=== PATIENT | female | born 1935 | race Caucasian/White ===

== ENCOUNTER 2017-10-31 15:36 | Observation (INO) | payer MEDICARE, OTHER ==
[~2017-10-31 15:36] MED LIST: ISOVUE-370 76%-LOCM 1 ML ONE
--- NOTE | 2017-10-31 16:40 | CT ---
HEAD CT WITHOUT CONTRAST: 10/31/17 COMPARISON: None. HISTORY: Memory loss for one hour, right hand numbness with hypertension. TECHNIQUE: Serial axial CT imaging at 5 mm intervals from vertex through skull base without contrast. FINDINGS: Imaged paranasal sinuses/mastoid air cells are well aerated. There is no displaced calvarial fracture . There is atherosclerotic calcification of the cavernous carotid arteries. No intracranial hemorrhage, midline shift, or mass effect. Periventricular hypodensities suggest smal l vessel disease. IMPRESSION: No intracranial hemorrhage. Results called to Dr. Ross, 3:50 p.m., 10/31/17. Code CR POS: TYREE
[2017-10-31 16:47] LABS: #Basophils 0.1 thou/uL (0.0-0.2); #Eosinphils 0.1 thou/uL (0.0-0.7); #Lymphocytes 3.1 thou/uL (1.20-3.40); #Monocytes 0.7 thou/uL (0.11-0.59); #Neutrophils 3.4 thou/uL (1.40-6.50); %Basophils 1.7 % (0.0-1.0); %Eosinophils 1.4 % (0.0-10.0); %Lymphocytes 42.2 % (21.0-51.0); %Monocytes 8.8 % (0.0-10.0); %Neutrophils 45.9 % (42.0-75.0); Mean Corpuscular HGB CONC 33.1 g/dL (32.0-36.0); Mean Corpuscular Hemoglobin 31.1 pg (27.0-31.0); Mean Corpuscular Volume 93.8 fl (81.0-99.0); Mean Platelet Volume 6.5 fL (7.4-10.4); Platelet Count 337 thou/uL (130-400); RBC Distribution Width 11.5 % (11.5-14.5); Red Blood Cell (RBC) Count 4.19 mill/uL (4.20-5.40); White Blood Cell (WBC) Count 7.4 thou/uL (4.8-10.8)
[2017-10-31 16:59] LABS: CKMB 0.9 ng/mL (0-6.6); Troponin I Less than 0.010 ng/mL (< 0.028)
--- NOTE | 2017-10-31 17:00 | CT ---
CT ANGIOGRAM OF THE HEAD CT ANGIOGRAM OF THE NECK CT PERFUSION 10/31/17 HISTORY: Stroke protocol. One hour ago, memory loss and right hand numbness. Symptoms have resolved. COMPARISON: None. TECHNIQUE: CT angiogram of the head and neck performed in the axial plane. Sagittal and coronal three dimensiona l reformatted images are submitted for interpretation. CT perfusion being performed in the axial plan e. FINDINGS: There is preservation of the cortical murcia-white matter differentiation. Chronic small vessel ischemi c change of the white matter are noted. Adequate aeration of the sinuses and mastoid air cells. Calvarium is intact. Symmetric attenuation of the optic nerves and ocular rectus muscles. Aerodigestive tract is patent. No obvious mucosal abnorm ality. Limited evaluation due to dental amalgam artifact. Grossly, the fatty raphae of the tongue susie ears to be preserved. There is nonspecific fullness involving both palatine tonsils. Epiglottis has a normal caliber. Pre-epiglottic fat is preserved. Symmetric attenuation of the parotid and submandibu lar glands. Thyroid gland is unremarkable. Symmetric attenuation of the sternocleidomastoid muscles. No evidence of lymphadenopathy by size criteria. Varying degrees of central canal stenosis and foraminal narrowing on the basis of degenerative change . Upper mediastinum and lung apices are grossly unremarkable for an acute abnormality. There is nonspec ific opacity in the left upper lobe, with a slight ground glass appearance measuring 4 mm. There is n onspecific opacity in the in the right upper lobe with a slight irregular marginated appearance measu ring [address] ANGIOGRAM: There is appropriate enhancement and luminal diameter of the visualized arch. RIGHT CAROTID: The right carotid artery origin has appropriate enhancement and luminal diameter. The right common ca rotid artery, carotid bifurcation, and internal carotid artery have appropriate enhancement and lumin al diameter. There is evidence of mild atherosclerotic disease involving the right carotid bifurcatio n and proximal internal carotid artery. No significant stenosis based upon NASCET criteria. LEFT CAROTID: The left carotid artery origin has appropriate enhancement and luminal diameter. The left common huitron tid artery, carotid bifurcation, and internal carotid artery have appropriate enhancement and luminal diameter. There is no evidence of significant stenosis. Both vertebral artery origins are unremarkable. Both vertebral arteries are patent throughout their c ourse of the neck. No significant stenosis. Bilateral subclavian arteries are unremarkable. CT ANGIOGRAM OF THE HEAD: There is symmetric enhancement and luminal diameter of the distal cervical and intracranial internal carotid arteries. ANTERIOR CIRCULATION: Symmetric enhancement and luminal diameter of the M1 segments. Congenitally diminutive left A1 segmen t. Proximal A2 segments and proximal MCA branches are unremarkable. POSTERIOR CIRCULATION: Posterior circulation does not demonstrate any significant stenosis. Basilar artery and the left PI s egment are unremarkable. The right [employer] IN[employer] LEADER has a origin. CT PERFUSION: No evidence of decreased blood flow or blood volume. No evidence of increased mean transit time. No e vidence of complete infarct or penumbra. IMPRESSION: 1. Unremarkable CT angiogram of the head and neck. 2. Unremarkable CT perfusion. Results of the study discussed with Dr. Ross, 10/31/17 at 4:06 p.m. Code CR POS: MANNY
[2017-10-31 17:02] LABS: Anion Gap 12 mmol/L (10-20); BUN (Urea Nitrogen) 25 mg/dL (9.8-20.1); Calc. Creatinine Clearance 0 mL/min (70-130); Carbon Dioxide 25 mmol/L (23-31); Chloride 99 mmol/L (98-107); Estimated GFR-MDRD 68; Potassium 3.8 mmol/L (3.5-5.1); Sodium 132 mmol/L (136-145)
[2017-10-31 17:03] LABS: ALT (SGPT) 13 U/L (8-55); AST (SGOT) 19 U/L (5-34); Albumin 3.7 g/dL (3.4-4.8); Alkaline Phosphatase 72 U/L (40-150); Bilirubin, Total 0.3 mg/dL (0.2-1.2); Calcium 8.5 mg/dL (7.8-10.44); Globulin 3.4 g/dL (2.4-3.5); Glucose 101 mg/dL (83-110); Protein, Total 7.1 g/dL (6.0-8.3)
--- NOTE | 2017-10-31 18:05 | RAD ---
SINGLE VIEW OF THE CHEST: COMPARISON: None. HISTORY: CVA/TIA. FINDINGS: Single view of the chest shows a normal sized cardiomediastinal silhouette. There is no evidence of c onsolidation, mass, or pleural effusion. The bones are unremarkable. IMPRESSION: No evidence of acute cardiopulmonary disease. POS: [facility]
[2017-10-31] MEDS ORDERED: Guaifenesin DM 100-10/5 ML UDCUP PO PRN (18:58)
[2017-10-31] MEDS ORDERED: Senokot 8.6 MG TAB PO PRN (18:58)
[2017-10-31] MEDS ORDERED: Acetaminophen 325 MG TAB PO PRN (18:58)
[2017-10-31] MEDS ORDERED: Sodium Chloride 0.9% 1,000 ML IV SCH (19:00)
[2017-10-31 20:13] LABS: Troponin I Less than 0.010 ng/mL (< 0.028)
[2017-10-31] MEDS ORDERED: Ondansetron HCl/PF 4 MG/2 ML Vial IVP PRN (20:40)
[2017-10-31] MEDS ORDERED: Ondansetron ODT 4 MG TAB SL PRN (20:40)
[2017-10-31] MEDS ORDERED: Atorvastatin Calcium 10 MG TAB PO SCH (21:00)
[2017-10-31 21:45] VITALS: BMI 27.8
--- NOTE | 2017-10-31 22:03 | HP ---
REASON FOR ADMISSION: Possible transient ischemic attack. HISTORY OF PRESENTING ILLNESS: The patient gives history of driving home around 2:30 p.m. She saw the cars in front of her and had some blurry vision. She could not really read the license plate of the car in front of her. The patient reached home walked 3 flights of stairs to a third floor home. She sat on her couch and was trying to watch TV. She could not read the caption. The patient then tried to get on her computer to log in and used her password 2 times and they were wrong and could not get in. All of this was feeling not right for her. She lives in [facility]. She has a friend of hers who is a retired nurse who came and checked her blood pressure. It was 100/60, which patient says is normal for her. She also felt her right hand to be numb and the nurse gave her aspirin. She felt better after this. She drove to ER with a friend to find out if she had a stroke or something did not seem right. No complaints of chest pain, palpitation, PND or orthopnea. The patient states she was a little anxious during this entire episode and does not recall if she had any palpitations. No complaints of cough or expectoration. No urinary symptoms. PAST MEDICAL/SURGICAL HISTORY: Prior history of fundoplication with severe GERD , has had stress test done 10 years back which was normal as far she knows. Prior endoscopies, hysterectomy, left breast biopsy. CURRENT MEDICATIONS: Takes aspirin on a p.r.n. basis, multivitamin 1 tab daily , Nexium 40 mg daily. ALLERGIES: No known drug allergies. PERSONAL HISTORY: Does not abuse alcohol or drugs. No history of smoking. Lives with her [facility]. FAMILY HISTORY: Mother at the age of 87 years. She has had history of dementia. Father at the age of 60 from myocardial infarction. He was a smoker. REVIEW OF SYSTEMS: The following complete review of systems was negative, unless otherwise mentioned in the HPI or below: Constitutional: Weight loss or gain, ability to conduct usual activities. Skin: Rash, itching. Eyes: Double vision, pain. ENT/Mouth: Nose bleeding, neck stiffness, pain, tenderness. Cardiovascular: Palpitations, dyspnea on exertion, orthopnea. Respiratory: Shortness of breath, wheezing, cough, hemoptysis, fever or night sweats. Gastrointestinal: Poor appetite, abdominal pain, heartburn, nausea, vomiting, constipation, or diarrhea. Genitourinary: Urgency, frequency, dysuria, nocturia. Musculoskeletal: Pain, swelling. Neurologic/Psychiatric: Anxiety, depression. Allergy/Immunologic: Skin rash, bleeding tendency. PHYSICAL EXAMINATION: GENERAL: The patient is an 81-year-old female who is currently not in any acute distress. VITAL SIGNS: Blood pressure 126/60, pulse 84 per minute, respiratory rate 16 per minute, temperature 98.4 degrees Fahrenheit, saturating 97% on room air. NECK: Supple, no elevated JVD. HEENT: Eyes, extraocular muscles intact. Pupils reacting to light. Oral cavity mucous membranes are dry. No exudates or congestion. CARDIOVASCULAR: S1, S2 heard. Regular rhythm. RESPIRATORY: Air entry 2+ bilateral. No rales or rhonchi. ABDOMEN: Soft, bowel sounds heard. No tenderness, rigidity or guarding. EXTREMITIES: No peripheral edema or calf tenderness. VASCULAR SYSTEM: Peripheral pulses 1+ bilateral, no ischemic ulcerations or gangrene. CENTRAL NERVOUS SYSTEM: No gross focal deficits seen. The patient moves all 4 extremities. Strength is 5/5 in all 4. Reflexes are 2+ bilateral. Babinski is downgoing. Cerebellar signs are grossly intact. Gait was not tested. PSYCHIATRIC: The patient's mood is euthymic. No hallucinations or delusions. LABORATORY AND X-RAY FINDINGS: CT angio brain done was unremarkable of the head and neck. CT brain showed no acute intracranial hemorrhage. Chest x-ray done showed no acute cardiopulmonary abnormalities. EKG done showed normal sinus rhythm at 82 beats per minute. BUN 25, creatinine 0.8, sodium 132, serum bicarbonate 25. Liver enzymes within normal limits. First set of cardiac enzymes are negative. Albumin is 3.7. White count of 7, H&H 13 and 39, platelet count 337, MCV is 93 with 45% neutrophils. CLINICAL IMPRESSION AND PLAN: The patient will be under observation on the stroke unit for possible TIA. She does not have any focal deficits at present. All her symptoms seemed to have resolved at present, but it is unclear the reason for all the symptoms as I have mentioned in the history of present illness. The patient most likely is mildly dehydrated. She will be placed on normal saline at 70 mL per hour. We will obtain an echo with 2D Doppler to evaluate her valves. We will continue her on aspirin 81 mg daily, and Protonix 40 mg daily. Lipid profile will be obtained in the morning. TIA evidence based protocol will be followed as well. We will continue to closely monitor her on the stroke unit. She will also be closely monitored on telemetry for any arrhythmias. Code status was discussed with patient and she is a FULL CODE. Power of tip scourer is her , who is here at bedside. AZAR
[2017-10-31 23:02] LABS: Troponin I Less than 0.010 ng/mL (< 0.028)
[2017-11-01 06:18] LABS: Anion Gap 9 mmol/L (10-20); BUN (Urea Nitrogen) 14 mg/dL (9.8-20.1); Calc. Creatinine Clearance 74 mL/min (70-130); Calcium 8.4 mg/dL (7.8-10.44); Carbon Dioxide 27 mmol/L (23-31); Cardiac Risk 4.7 (Less than 4.5); Chloride 106 mmol/L (98-107); Cholesterol 191 mg/dl (< 200 Desired); Estimated GFR-MDRD 87; Glucose 83 mg/dL (83-110); HDL Cholesterol 41 mg/dL (>60 Neg Risk); LDL Cholesterol, Calculated 138 mg/dL; Potassium 3.7 mmol/L (3.5-5.1); Sodium 138 mmol/L (136-145); Triglycerides 58 mg/dL (Less than 150)
[2017-11-01 06:50] LABS: Folate (Folic Acid) 14.6 ng/mL (7.0-31.4)
[2017-11-01 06:51] LABS: Hemoglobin 12.3 g/dL (12.0-16.0); Mean Corpuscular HGB CONC 32.5 g/dL (32.0-36.0); Mean Corpuscular Volume 95.5 fl (81.0-99.0); Mean Platelet Volume 6.5 fL (7.4-10.4); Platelet Count 330 thou/uL (130-400); RBC Distribution Width 11.4 % (11.5-14.5); Red Blood Cell (RBC) Count 3.96 mill/uL (4.20-5.40); White Blood Cell (WBC) Count 5.2 thou/uL (4.8-10.8)
[2017-11-01 06:52] LABS: Band 1 % (5-11); Lymphocytes 63 % (21-51); MDiff Complete? YES; Monocytes 7 % (0-10); Neutrophil 25 % (42-75); PLT Morphology Comment Appears Adequate; RBC Morphology Normal; Reactive Lymphocytes 4 % (0-10)
[2017-11-01] MEDS ORDERED: Aspirin 81 mg Enteric Coated Tablet PO SCH (09:00)
[2017-11-01] MEDS ORDERED: Enoxaparin Sodium 40 MG/0.4 ML SYRINGE SC SCH (09:00)
[2017-11-01 09:15] LABS: Bilirubin Negative (Negative); Blood, Urine Negative (Negative); Clarity CLEAR (Clear); Glucose, Urine (Dipstick) Negative (Negative); Leukocyte Large (Negative); Nitrite Negative (Negative); Protein, Urine (Dipstick) Negative (Neg-Trace); Specific Gravity, Urine 1.024 (1.002-1.036); Urobilinogen 0.2 mg/dL (0.2-1.0)
[2017-11-01 09:17] LABS: Bacteria/HPF None Seen HPF (None Seen); Hyaline Casts/LPF 0-3 HYALINE CAST LPF (0-3 Hyaline); Pathc Cast-AUWi Flag 0.72 (0-2.49); RBC/HPF 0-3 HPF (0-3); Squamous Epithelial 0-3 HPF (0-3)
[2017-11-01 11:52] VITALS: TEMP 98.3
[2017-11-01 13:35] VITALS: BP 113/52
--- NOTE | 2017-11-02 14:59 | DIS ---
DISCHARGE DIAGNOSIS: Transient ischemic attack. BRIEF SUMMARY OF HOSPITAL COURSE: This is an 81-year-old female who initially presented with chief complaint of blurry vision. Please see the original history and physical for full details surrounding her admission. The patient was going about her usual activities of daily living and she initially presented with a chief complaint of blurry vision. She was seen in the emergency department, and underwent multiple rounds of imaging including CT of the brain and CTA of the brain and neck, all of which were grossly unrevealing. At the time of discharge, the patient was felt to have potentially experienced a transient ischemic attack or TIA. Her symptoms are currently resolved. Remainder of her chronic medical issues were clinically stable during hospitalization. MEDICATION RECONCILIATION: Please see the EMR for full details. The patient was placed on Lipitor and aspirin. PATIENT'S CONDITION AT DISCHARGE: At the time of discharge, the patient's vital signs are stable. She is tolerating her baseline diet and activity. DISCHARGE INSTRUCTIONS: The patient is asked to follow closely with her outpatient primary care team. Thank you for asking me to care for the patient. AZAR
--- NOTE | 2017-11-09 15:02 | EKG ---
Test Reason : Blood Pressure : / mmHG Vent. Rate : 087 BPM Atrial Rate : 087 BPM P-R Int : 148 ms QRS Dur : 084 ms QT Int : 382 ms P-R-T Axes : 074 012 049 degrees QTc Int : 459 ms Normal sinus rhythm Nonspecific ST abnormality Abnormal ECG Confirmed by RILEY PPEE ([id number]), newspaper or periodical editor MELLO FARFAN ([id number] on 11/09/2017 3:00:26 PM Referred By: Confirmed By:RILEY PEPE
== END 2017-11-01 15:55 | disposition home or self-care (01) ==
LOC: ERS 15:36 → 2SE 17:07
PROVIDERS: ADMIT Internal Medicine; ATTEND Internal Medicine
DX: H53.8 Other visual disturbances (principal); R20.0 Anesthesia of skin; K21.9 Gastro-esophageal reflux disease without esophagitis; Z79.899 Other long term (current) drug therapy; Z90.710 Acquired absence of both cervix and uterus; Z98.890 Other specified postprocedural states
CPT/HCPCS: 0042T; 70450; 70496; 70498; 71045; 80048; 80053; 80061; 81001; 82553; 82607; 82746; 82962; 83605; 84443; 84484 ×2; 85025 ×2; 93005; 93306; 94760; 96360; 96361 ×2; 96372; 97139 ×4; 99285; G0378; G8978; G8979; G8980; G8987; G8988; G8989; 36415; 36416; G9162-GN-CJ; G9163-GN-CI; J1650

== ENCOUNTER 2018-08-26 16:50 | Emergency (ER) | payer MEDICARE, OTHER ==
[2018-08-26 17:59] LABS: #Basophils 0.1 thou/uL (0.0-0.2); #Lymphocytes 1.5 thou/uL (1.20-3.40); #Monocytes 0.4 thou/uL (0.11-0.59); #Neutrophils 5.7 thou/uL (1.40-6.50); %Basophils 1.1 % (0.0-1.0); %Eosinophils 0.2 % (0.0-10.0); %Lymphocytes 19.9 % (21.0-51.0); %Monocytes 4.8 % (0.0-10.0); %Neutrophils 74.1 % (42.0-75.0); Hemoglobin 12.8 g/dL (12.0-16.0); Mean Corpuscular HGB CONC 33.7 g/dL (32.0-36.0); Mean Corpuscular Hemoglobin 31.3 pg (27.0-31.0); Mean Corpuscular Volume 92.9 fL (78.0-98.0); Mean Platelet Volume 6.7 fL (7.4-10.4); Platelet Count 341 thou/uL (130-400); RBC Distribution Width 11.7 % (11.5-14.5); White Blood Cell (WBC) Count 7.7 thou/uL (4.8-10.8)
[2018-08-26 18:20] LABS: ALT (SGPT) 16 U/L (8-55); AST (SGOT) 24 U/L (5-34); Albumin 3.8 g/dL (3.4-4.8); Alkaline Phosphatase 79 U/L (40-150); Anion Gap 15 mmol/L (10-20); BUN (Urea Nitrogen) 20 mg/dL (9.8-20.1); Bilirubin, Total 0.4 mg/dL (0.2-1.2); Calc. Creatinine Clearance 0 mL/min (70-130); Calcium 8.9 mg/dL (7.8-10.44); Carbon Dioxide 25 mmol/L (23-31); Chloride 102 mmol/L (98-107); Estimated GFR-MDRD 74; Globulin 3.6 g/dL (2.4-3.5); Glucose 105 mg/dL (83-110); Potassium 4.1 mmol/L (3.5-5.1); Protein, Total 7.4 g/dL (6.0-8.3); Sodium 138 mmol/L (136-145)
--- NOTE | 2018-08-26 18:31 | CT ---
NONCONTRAST CT HEAD: 08/26/2018 HISTORY: Headache and blurry vision. COMPARISON: 10/31/2017 FINDINGS: There is diminished attenuation in the periventricular white matter, which is nonspecific but, again, likely reflective of chronic small vessel ischemic changes. There is no evidence of an acute infarc tion, hemorrhage, mass effect, or midline shift. There is a low density area seen within the medulla , which is probably artifactual, as opposed to an infarction. There is mild cerebral volume loss. T he ventricular system is normal in size, shape, and position. Mucosal thickening is seen involving t he posterior right ethmoid air cells. The mastoid air cells are clear. No other interval change. IMPRESSION: 1. No acute intracranial abnormalities demonstrated. 2. Chronic small vessel ischemic changes and cerebral volume loss. 3. Low density area in the medulla, felt to be related to artifact, as opposed to an infarction. POS: [facility]
== END 2018-08-26 19:03 | disposition home or self-care (01) ==
LOC: ERS 16:50
DX: R51 Headache (principal); K21.9 Gastro-esophageal reflux disease without esophagitis; Z86.73 Personal history of transient ischemic attack (TIA), and cerebral infarction without residual deficits; Z79.82 Long term (current) use of aspirin; Z79.899 Other long term (current) drug therapy
CPT/HCPCS: 36415; 70450; 80053; 84484; 85025; 93005

== ENCOUNTER 2019-09-08 12:51 | Emergency (ER) | payer MEDICARE, OTHER ==
--- NOTE | 2019-09-08 14:15 | RAD ---
Radiograph left forearm 2 views: DATE: 09/08/2019 Time: There are 3:00 PM HISTORY: 83-year-old female with acute, traumatic left forearm pain from fall. FINDINGS: Distal radial metaphyseal fracture with mild displacement. Ulnar styloid fracture. No fracture of rad ial or ulnar diaphyses. Diffuse osteopenia. IMPRESSION: Acute Colles' fracture.
--- NOTE | 2019-09-08 14:17 | RAD ---
Radiograph left wrist 3 views: DATE: 09/08/2019 Time: 2:05 PM HISTORY: 83-year-old female with acute, traumatic left forearm pain from fall. FINDINGS: Distal radial metaphyseal fracture with mild displacement, mild dorsal angulation of distal fragment. . Ulnar styloid fracture at base with mild to moderate distal displacement of distal fragment. Diffuse osteopenia. IMPRESSION: 1. Acute Colles' fracture of the distal radial metaphysis with mild displacement and mild angulation. 2. Acute ulnar styloid fracture with displacement..
[2019-09-08] MEDS ORDERED: Adacel (T-DAP) 0.5 ML SYRINGE ONE (14:42)
== END 2019-09-08 14:52 | disposition home or self-care (01) ==
LOC: ERS 12:51
DX: S52.532A Colles' fracture of left radius, initial encounter for closed fracture (principal); S00.12XA Contusion of left eyelid and periocular area, initial encounter; K21.9 Gastro-esophageal reflux disease without esophagitis; Z86.73 Personal history of transient ischemic attack (TIA), and cerebral infarction without residual deficits; Z79.899 Other long term (current) drug therapy; Z79.82 Long term (current) use of aspirin; W23.0XXA Caught, crushed, jammed, or pinched between moving objects, initial encounter
CPT/HCPCS: 29125; 90471; 90715

== ENCOUNTER 2020-05-13 14:00 | Outpatient (CLI) | payer MEDICARE, OTHER ==
--- NOTE | 2020-05-13 15:22 | MMO ---
Bilateral MAMMO Bilat Screen [facility]. CLINICAL HISTORY: Patient is 84 years old and is seen for screening. The patient has the following family history of breast cancer: cousin female, at age 62, paternal. The patient has no personal history of cancer. The patient has a history of left Excisional Biopsy in - benign. VIEWS: The views performed were: bilateral craniocaudal with tomosynthesis and bilateral mediolateral oblique with tomosynthesis. FILMS COMPARED: The present examination has been compared to prior imaging studies performed at [facility] on 12/19/2013 and 05/19/2017. This study has been interpreted with the assistance of computer-aided detection. MAMMOGRAM FINDINGS: The breasts are heterogeneously dense, which could obscure a lesion on mammography. There are stable benign appearing calcifications seen in both breasts. There are no suspicious masses, suspicious calcifications, or new areas of architectural distortion. IMPRESSION: THERE IS NO MAMMOGRAPHIC EVIDENCE OF MALIGNANCY. A ROUTINE FOLLOW-UP MAMMOGRAM IN 1 YEAR IS RECOMMENDED. THE RESULTS OF THIS EXAM WERE SENT TO THE PATIENT. ACR BI-RADS Category 2 - Benign finding MAMMOGRAPHY NOTE: 1. A negative mammogram report should not delay a biopsy if a dominant of clinically suspicious mass is present. 2. Approximately 10% to 15% of breast cancers are not detected by mammography. 3. Adenosis and dense breasts may obscure an underlying neoplasm. Reported by: ZACHARIAH AMATO MD Electonically Signed: [id number]
== END 2020-05-13 14:01 | disposition home or self-care (01) ==
LOC: BICMAMMO 14:00
PROVIDERS: ATTEND Internal Medicine
DX: Z12.31 Encounter for screening mammogram for malignant neoplasm of breast (principal); Z80.3 Family history of malignant neoplasm of breast; Z91.89 Other specified personal risk factors, not elsewhere classified
CPT/HCPCS: 77063; 77067

== ENCOUNTER 2022-05-26 13:50 | Observation (INO) | payer MEDICARE, OTHER ==
[2022-05-26 15:07] LABS: #Basophils 0.1 thou/uL (0.0-0.2); #Eosinphils 0.2 thou/uL (0.0-0.7); #Lymphocytes 2.1 thou/uL (1.20-3.40); #Monocytes 0.6 thou/uL (0.11-0.59); #Neutrophils 4.8 thou/uL (1.40-6.50); %Basophils 0.8 % (0.0-1.0); %Eosinophils 2.8 % (0.0-10.0); %Lymphocytes 26.5 % (21.0-51.0); %Monocytes 8.3 % (0.0-10.0); %Neutrophils 61.5 % (42.0-75.0); Hemoglobin 13.5 g/dL (12.0-16.0); Mean Corpuscular HGB CONC 32.6 g/dL (32.0-36.0); Mean Corpuscular Hemoglobin 31.5 pg (27.0-31.0); Mean Corpuscular Volume 96.5 fL (78.0-98.0); Platelet Count 337 thou/uL (130-400); RBC Distribution Width 11.7 % (11.5-14.5); Red Blood Cell (RBC) Count 4.29 mill/uL (4.20-5.40); White Blood Cell (WBC) Count 7.7 thou/uL (4.8-10.8)
[2022-05-26 15:20] LABS: ALT (SGPT) 14 U/L (8-55); AST (SGOT) 22 U/L (5-34); Albumin 3.6 g/dL (3.4-4.8); Alkaline Phosphatase 82 U/L (40-110); Anion Gap 13 mmol/L (10-20); BUN (Urea Nitrogen) 20 mg/dL (9.8-20.1); Bilirubin, Total 0.6 mg/dL (0.2-1.2); Calc. Creatinine Clearance 0 mL/min (70-130); Calcium 8.5 mg/dL (7.8-10.44); Carbon Dioxide 25 mmol/L (23-31); Chloride 103 mmol/L (98-107); Estimated GFR 72; Globulin 3.7 g/dL (2.4-3.5); Glucose 129 mg/dL (83-110); Potassium 4.1 mmol/L (3.5-5.1); Protein, Total 7.3 g/dL (5.8-8.1); Sodium 137 mmol/L (136-145)
[2022-05-26 15:31] LABS: Prothrombin Time 13.1 sec (12.0-14.7)
[2022-05-26] MEDS ORDERED: Morphine 4 MG/ML VIAL ONE (15:36)
[2022-05-26] MEDS ORDERED: Boostrix 0.5 ML (Tdap) VIAL (>/=7 yrs of age) ONE (15:36)
[2022-05-26] MEDS ORDERED: CEFAZOLIN 1 GM VIAL ONE (15:36)
[2022-05-26] MEDS ORDERED: Neomycin-Polymyxin 1 ML AMP ONE (15:39)
[2022-05-26] MEDS ORDERED: Ondansetron PF 4 MG/2 ML Vial IVP PRN (15:59)
[2022-05-26] MEDS ORDERED: Dextrose 50% Abboject 50 ML SYRINGE SLOW IVP PRN (15:59)
[2022-05-26] MEDS ORDERED: Dextrose 5% in Water 1,000 ML IV PRN (15:59)
[2022-05-26] MEDS ORDERED: TETANUS, DIPHTHERIA TOX,ADULT (TDVAX) 0.5 ML VIAL IM ONE (15:59)
[2022-05-26] MEDS ORDERED: Lidocaine 1% PF 5 ML VIAL ONE ×2 (16:00→16:01)
[2022-05-26] MEDS ORDERED: traMADol HCl 50 MG TAB PO PRN (16:03)
[2022-05-26] MEDS ORDERED: Morphine 4 MG/ML VIAL SLOW IVP PRN (16:05)
[2022-05-26] MEDS ORDERED: fentaNYL Citrate/PF 100 MCG/2 ML SYRINGE ONE (17:04)
[2022-05-26] MEDS ORDERED: Phenylephrine 10 MG/ML VIAL ONE (17:04)
[2022-05-26] MEDS ORDERED: CEFAZOLIN 2 GM VIAL ONE (17:08)
[2022-05-26] MEDS ORDERED: Sodium Chloride 0.9% 100 ML ONE (17:08)
[2022-05-26] MEDS ORDERED: PROPOFOL 200 MG/20 ML VIAL ONE (17:22)
[2022-05-26] MEDS ORDERED: PHENYLEPHRINE-NS 100 MCG/ML 10 ML SYRINGE ONE (17:22)
[2022-05-26] MEDS ORDERED: Rocuronium Bromide 10 MG/ML (10ML VIAL) ONE (17:22)
[2022-05-26] MEDS ORDERED: Bupivacaine PF 0.5% 30 ML VIAL ONE (17:45)
[2022-05-26] MEDS ORDERED: SUGAMMADEX SODIUM 200 MG/2 ML VIAL ONE (18:03)
[2022-05-26] MEDS ORDERED: PACU-Morphine 4MG/ML VIAL SLOW IVP PRN (18:37)
[2022-05-26] MEDS ORDERED: Ondansetron HCl/PF 4 MG/2 ML Vial IVP PRN (18:37)
[2022-05-26] MEDS ORDERED: HYDROmorphone 2 MG/ML VIAL SLOW IVP PRN (18:37)
[2022-05-26] MEDS ORDERED: Promethazine HCl 25 MG/ML VIAL IVPB PRN (18:37)
[2022-05-26] MEDS ORDERED: Promethazine HCl 25 MG/ML VIAL IM PRN (18:37)
[2022-05-26] MEDS ORDERED: Ondansetron PF 4 MG/2 ML Vial ONE (19:07)
[2022-05-26 20:11] VITALS: BMI 32.8
[2022-05-26] MEDS: traMADol HCl 50 MG TAB PO SCH (20:23)
[2022-05-26] MEDS: Acetaminophen 325 MG TAB PO SCH (20:23)
[2022-05-26] MEDS: Famotidine 20 MG TAB PO SCH (20:45)
[2022-05-26] MEDS: Ibuprofen 600 MG TAB PO SCH (20:46)
[2022-05-26] MEDS ORDERED: Atorvastatin Calcium 10 MG TAB PO SCH (21:00)
[2022-05-27] MEDS: Acetaminophen 325 MG TAB PO SCH ×3 (00:07→11:33)
[2022-05-27] MEDS: traMADol HCl 50 MG TAB PO SCH ×3 (00:08→11:23)
[2022-05-27] MEDS: CEFAZOLIN 2 GM in Sodium Chloride 0.9% 100 ML IVPB SCH ×2 (02:25→09:29)
[2022-05-27] MEDS: Ibuprofen 600 MG TAB PO SCH (06:37)
[2022-05-27 07:26] LABS: #Eosinphils 0.1 thou/uL (0.0-0.7); #Monocytes 0.7 thou/uL (0.11-0.59); #Neutrophils 3.3 thou/uL (1.40-6.50); %Basophils 0.6 % (0.0-1.0); %Eosinophils 2.1 % (0.0-10.0); %Lymphocytes 32.5 % (21.0-51.0); %Monocytes 11.1 % (0.0-10.0); %Neutrophils 53.7 % (42.0-75.0); Hemoglobin 11.8 g/dL (12.0-16.0); Mean Corpuscular HGB CONC 33.2 g/dL (32.0-36.0); Mean Corpuscular Hemoglobin 32.1 pg (27.0-31.0); Mean Corpuscular Volume 96.7 fL (78.0-98.0); Mean Platelet Volume 6.9 fL (7.4-10.4); Platelet Count 295 thou/uL (130-400); RBC Distribution Width 11.7 % (11.5-14.5); Red Blood Cell (RBC) Count 3.66 mill/uL (4.20-5.40); White Blood Cell (WBC) Count 6.2 thou/uL (4.8-10.8)
[2022-05-27 07:50] LABS: Anion Gap 10 mmol/L (10-20); BUN (Urea Nitrogen) 18 mg/dL (9.8-20.1); Calc. Creatinine Clearance 61 mL/min (70-130); Calcium 8.1 mg/dL (7.8-10.44); Carbon Dioxide 25 mmol/L (23-31); Chloride 105 mmol/L (98-107); Estimated GFR 67; Glucose 95 mg/dL (83-110); Magnesium 1.7 mg/dL (1.6-2.6); Phosphorus 3.5 mg/dL (2.3-4.7); Potassium 3.8 mmol/L (3.5-5.1); Sodium 136 mmol/L (136-145)
[2022-05-27] MEDS ORDERED: Polyethylene Glycol 3350 17 GM Packet PO SCH (09:00)
[2022-05-27] MEDS ORDERED: Senokot S 8.6-50 MG TAB PO SCH (09:00)
[2022-05-27] MEDS: Famotidine 20 MG TAB PO SCH (09:25)
[2022-05-30 11:08] VITALS: BP 110/65; TEMP 97.9
== END 2022-05-27 13:40 | disposition home or self-care (01) ==
LOC: ERS 13:50 → SURG B 15:59
PROVIDERS: ADMIT Orthopaedic Surgery; ATTEND Orthopaedic Surgery
PROC: 0PSH04Z Reposition Right Radius with Internal Fixation Device, Open Approach (ICD-10-PCS; principal; 2022-05-26)
DX: S52.531B Colles' fracture of right radius, initial encounter for open fracture type I or II (principal); S01.81XA Laceration without foreign body of other part of head, initial encounter; G89.11 Acute pain due to trauma; E78.5 Hyperlipidemia, unspecified; K21.9 Gastro-esophageal reflux disease without esophagitis; Z86.73 Personal history of transient ischemic attack (TIA), and cerebral infarction without residual deficits; Z79.82 Long term (current) use of aspirin; Z79.899 Other long term (current) drug therapy; W01.0XXA Fall on same level from slipping, tripping and stumbling without subsequent striking against object, initial encounter
CPT/HCPCS: 12013; 25608; 70450; 72125; 72170; 73100; 73110; 73564; 76000; 80048; 80053; 83735; 84100; 85025 ×2; 85610; 85730; 90471; 90715; 93005; 96374; 96375; 97530; 97535; 99285; C1713 ×3; 36415; G0390; J0690; J2270; J2370; J2405; J2704; J3490; S0020

== ENCOUNTER 2023-10-02 09:17 | Outpatient (CLI) | payer MEDICARE, OTHER ==
[2023-10-02] MEDS ORDERED: Barium Sulfate 96% 176 GM BOT (xray ONLY) ONE (09:36)
[2023-10-02] MEDS ORDERED: E-Z-HD 98% W/W 340GM BOT (x-ray ONLY) ONE (09:36)
== END 2023-10-02 09:18 | disposition home or self-care (01) ==
LOC: RAD 09:17
PROVIDERS: ATTEND Physician Assistant Medical
DX: K21.9 Gastro-esophageal reflux disease without esophagitis (principal); R09.A2 Foreign body sensation, throat; R49.0 Dysphonia
CPT/HCPCS: 74220